=== PATIENT | female | born 1980 | race American Indian/Alaskan Native ===

== ENCOUNTER 2018-11-21 15:24 | Emergency (ER) | payer MEDICAID, OTHER ==
--- NOTE | 2018-11-21 16:23 | Emergency Department Report ---
Blank Doc - Documentation Documentation: This is a 38-year-old female that presents with right foot pain s/p fall. This initial assessment/diagnostic orders/clinical plan/treatment(s) is/are subject to change based on patient's health status, clinical progression and re- assessment by fellow clinical providers in the ED. Further treatment and workup at subsequent clinical providers discretion. Patient/guardians urged not to elope from the ED as their condition may be serious if not clinically assessed and managed. Initial orders include: 1- Patient sent to [facility] for further evaluation and treatment 2- xray
[2018-11-21 16:24] VITALS: BP 153/87
--- NOTE | 2018-11-21 16:57 | XRay Report ---
PROCEDURE: XR FOOT 3+V RT TECHNIQUE: foot radiographs, AP, lateral, and oblique views. HISTORY: RT foot pain COMPARISONS: None . FINDINGS: AP, lateral and oblique views of the right foot were acquired and demonstrate no fracture o r malalignment of the right foot. There is a plantar calcaneal spur 0.3 cm. IMPRESSION: No fracture is seen in the right foot This document is electronically signed by Channing Traylor MD., November 21 2018 04:55:44 PM ET
[2018-11-21] MEDS ORDERED: ULTRAM PO ONE (18:07)
--- NOTE | 2018-11-21 18:55 | Emergency Department Report ---
ED Lower Extremity HPI - General Chief Complaint: Extremity Injury, Lower Stated Complaint: RIGHT FOOT PAIN Time Seen by Provider: 11/21/18 16:22 Source: patient Mode of arrival: Ambulatory Limitations: No Limitations - History of Present Illness Initial Comments: This is a 38-year-old female that presents with right foot pain s/p fall. pain described as 6/10 aching no swelling no numbness no tingling no deformity pt is ambulatory with steady gait. MD Complaint: foot injury Onset/Timin -: days(s) Injury: Foot: Right Type of Injury: hyperextension Place: work Severity: moderate Severity scale (0 -10): 5 Improves With: rest Worsens With: weight bearing, movement, palpation Associated Symptoms: ambulatory - Related Data Previous Rx's Medication Instructions Recorded Last Taken Type Ibuprofen [Motrin] 600 mg PO Q8H PRN #30 tablet 03/30/14 Unknown Rx Loratadine/Pseudoephedrine 1 tab PO Q12H #20 tablet 03/30/14 Unknown Rx [Claritin-D 12HR] Vit-Fe Fumar-FA [ 1 tab PO QDAY #90 tablet 04/07/15 Unknown Rx Vitamin] Promethazine [Phenergan TAB] 25 mg PO Q6HR PRN #20 tab 04/07/15 Unknown Rx cephALEXin [Keflex] 500 mg PO Q6HR #28 capsule 04/07/15 Unknown Rx metroNIDAZOLE 0.75%(NF) [Metrogel 1 applicatio TP QHS #5 tube 04/07/15 Unknown Rx 0.75% TOPICAL] Cyclobenzaprine [Flexeril] 10 mg PO TID PRN #30 tablet 11/21/18 Unknown Rx Menthol/Camphor [[place] 1 applicatio TP QID PRN #1 tube 11/21/18 Unknown Rx Ointment] Naproxen [Naprosyn TAB] 500 mg PO BID PRN #30 tablet 11/21/18 Unknown Rx Allergies Allergy/AdvReac Type Severity Reaction Status Date / Time No Known Allergies Allergy Verified 11/21/18 15:27 ED Review of Systems ROS: Stated complaint: RIGHT FOOT PAIN Other details as noted in HPI Constitutional: denies: chills, fever Eyes: denies: eye pain, eye discharge, vision change ENT: denies: ear pain, throat pain Respiratory: denies: cough, shortness of breath, wheezing Cardiovascular: denies: chest pain, palpitations Endocrine: no symptoms reported Gastrointestinal: as per HPI Genitourinary: denies: urgency, dysuria, discharge Musculoskeletal: joint swelling Skin: denies: rash, lesions Neurological: denies: headache, weakness, paresthesias Psychiatric: denies: anxiety, depression Hematological/Lymphatic: denies: easy bleeding, easy bruising ED Past Medical Hx - Past Medical History Previous Medical History?: No Additional medical history: heart murmur - Surgical History Additional Surgical History: - Social History Smoking Status: Never Smoker Substance Use Type: None - Medications Home Medications: Home Medications Medication Instructions Recorded Confirmed Last Taken Type Ibuprofen [Motrin] 600 mg PO Q8H PRN #30 tablet 03/30/14 Unknown Rx Loratadine/Pseudoephedrine 1 tab PO Q12H #20 tablet 03/30/14 Unknown Rx [Claritin-D 12HR] Vit-Fe Fumar-FA [ 1 tab PO QDAY #90 tablet 04/07/15 Unknown Rx Vitamin] Promethazine [Phenergan TAB] 25 mg PO Q6HR PRN #20 tab 04/07/15 Unknown Rx cephALEXin [Keflex] 500 mg PO Q6HR #28 capsule 04/07/15 Unknown Rx metroNIDAZOLE 0.75%(NF) [Metrogel 1 applicatio TP QHS #5 tube 04/07/15 Unknown Rx 0.75% TOPICAL] Cyclobenzaprine [Flexeril] 10 mg PO TID PRN #30 tablet 11/21/18 Unknown Rx Menthol/Camphor [[place] 1 applicatio TP QID PRN #1 tube 11/21/18 Unknown Rx Ointment] Naproxen [Naprosyn TAB] 500 mg PO BID PRN #30 tablet 11/21/18 Unknown Rx ED Physical Exam - General Limitations: No Limitations General appearance: alert, in no apparent distress - Head Head exam: Present: atraumatic, normocephalic - Eye Eye exam: Present: normal appearance, PERRL, EOMI Pupils: Present: normal accommodation - ENT ENT exam: Present: mucous membranes moist - Neck Neck exam: Present: normal inspection, full ROM. Absent: lymphadenopathy - Respiratory Respiratory exam: Present: normal lung sounds bilaterally. Absent: respiratory distress, wheezes, stridor, chest wall tenderness - Cardiovascular Cardiovascular Exam: Present: regular rate, normal rhythm, normal heart sounds. Absent: systolic murmur, diastolic murmur, rubs, gallop - GI/Abdominal GI/Abdominal exam: Present: soft, normal bowel sounds. Absent: distended, tenderness, bruit, hernia - Rectal Rectal exam: Present: deferred - Extremities Exam Extremities exam: Present: normal inspection, full ROM, tenderness, normal capillary refill. Absent: pedal edema, joint swelling, other - Expanded Lower Extremity Exam Right Foot/Toe exam: Present: full ROM, tenderness. Absent: swelling, abrasion, laceration, ecchymosis, deformity, crepidus, dislocation, erythema, amputation, puncture wound, foreign body, calcaneal tenderness, tenderness at base of 5th metatarsal, nail avulsion, subungual hematoma Neuro vascular tendon exam: Absent: pulse deficit, motor deficit, sensory deficit, tendon deficit, abnormal 2-point discrimination, foot drop Gait: Positive: observed and normal - Back Exam Back exam: Present: normal inspection, full ROM. Absent: tenderness, CVA tenderness (R), CVA tenderness (L), muscle spasm, paraspinal tenderness, rash noted - Neurological Exam Neurological exam: Present: alert, oriented X3, CN II-XII intact, normal gait, reflexes normal. Absent: motor sensory deficit - Psychiatric Psychiatric exam: Present: normal affect, normal mood - Skin Skin exam: Present: warm, dry, intact, normal color. Absent: rash ED Course Vital Signs 11/21/18 16:22 Temperature 98.7 F Pulse Rate 66 Respiratory 16 Rate Blood Pressure 153/87 O2 Sat by Pulse 99 Oximetry ED Lower Extremity MDM - Radiology Data Radiology results: report reviewed, image reviewed This is a 38-year-old female that presents with right foot pain s/p fall and twist accident at work pt complains of 5/10 aching mild swelling no numbness no tingling - Medical Decision Making Patient fracture and soft tissue abnormality plan NSAIDs therapy following her PCP in 2-3 days , pain is improved, patient is ambulatory with with steady gait. Critical care attestation.: If time is entered above; I have spent that time in minutes in the direct care of this critically ill patient, excluding procedure time. ED Disposition Clinical Impression: Right foot sprain Qualifiers: Encounter type: initial encounter Qualified Code(s): S93.601A - Unspecified sprain of right foot, initial encounter Disposition: TO HOME OR SELFCARE Is pt being admited?: No Does the pt Need Aspirin: No Condition: Stable Instructions: Foot Sprain (ED), Ankle Exercises (GEN) Prescriptions: Cyclobenzaprine [Flexeril] 10 mg PO TID PRN #30 tablet PRN Reason: Muscle Spasm Naproxen [Naprosyn TAB] 500 mg PO BID PRN #30 tablet PRN Reason: pain Menthol/Camphor [[place] Ointment] 1 applicatio TP QID PRN #1 tube PRN Reason: pain [facility]Primary [facility] Provider[facility] - 3-5 Days Forms: Work/School Release Form(ED) Time of Disposition: 19:11
== END 2018-11-21 19:19 | disposition home or self-care (01) ==
LOC: ED 15:24
DX: S93.601A Unspecified sprain of right foot, initial encounter (principal); X50.0XXA Overexertion from strenuous movement or load, initial encounter; Y93.89 Activity, other specified; Y92.69 Other specified industrial and construction area as the place of occurrence of the external cause; Y99.8 Other external cause status
CPT/HCPCS: 99283

== ENCOUNTER 2019-08-28 17:03 | Emergency (ER) | payer SELFPAY ==
[2019-08-28 18:10] VITALS: BP 162/97
--- NOTE | 2019-08-28 18:10 | Event Note ---
ED Screening Note Date of service: 08/28/19 Time: 18:09 ED Screening Note: 39 y o female presents with left eye redness and pain with some swelling x 2 days This initial assessment/diagnostic orders/clinical plan/treatment(s) is/are subject to change based on patients health status, clinical progression and re- assessment by fellow clinical providers in the ED. Further treatment and workup at subsequent clinical providers discretion. Patient/guardian urged not to elope from the ED as their condition may be serious if not clinically assessed and managed. Initial orders include: E[facility] acc eval
[2019-08-28] MEDS ORDERED: IBUPROFEN 800 MG TAB PO ONE (21:38)
--- NOTE | 2019-08-28 21:41 | Emergency Department Report ---
[facility] Chief Complaint: Eye Problems Stated Complaint: LT EYE PAIN Time Seen by Provider: 08/28/19 21:36 Side: Left Severity: moderate Symptoms: Yes Eye Itching, Yes Eye Redness, Yes Eye Pain, Yes Mucous Drainage, Yes Purulent Drainage, Yes H/O Allergic Rhinitis, No Blurred Vision, No Preceding URI, No Contact Lens Use, No Trauma, No Fever, No Headache Other History: pt presents for pink eye x 2 days , child at home with same, there is no loss of vision , no fever or chills , no swelling drainage is yellow clear. ED Review of Systems ROS: Stated complaint: LT EYE PAIN Other details as noted in HPI Constitutional: denies: chills, fever Eyes: eye discharge. denies: eye pain, vision change ENT: denies: ear pain, throat pain Respiratory: denies: cough, shortness of breath, wheezing Cardiovascular: denies: chest pain, palpitations Endocrine: no symptoms reported Gastrointestinal: denies: abdominal pain, nausea, diarrhea Genitourinary: denies: urgency, dysuria, discharge Musculoskeletal: denies: back pain, joint swelling, arthralgia Skin: denies: rash, lesions Neurological: denies: headache, weakness, paresthesias Psychiatric: denies: anxiety, depression Hematological/Lymphatic: as per HPI ED Past Medical Hx - Past Medical History Previous Medical History?: Yes Additional medical history: heart murmur - Surgical History Past Surgical History?: Yes Additional Surgical History: - Social History Smoking Status: Never Smoker Substance Use Type: None - Medications Home Medications: Home Medications Medication Instructions Recorded Confirmed Last Taken Type Ibuprofen [Motrin] 600 mg PO Q8H PRN #30 tablet 03/30/14 Unknown Rx Loratadine/Pseudoephedrine 1 tab PO Q12H #20 tablet 03/30/14 Unknown Rx [Claritin-D 12HR] Vit-Fe Fumar-FA [ 1 tab PO QDAY #90 tablet 04/07/15 Unknown Rx Vitamin] Promethazine [Phenergan TAB] 25 mg PO Q6HR PRN #20 tab 04/07/15 Unknown Rx cephALEXin [Keflex] 500 mg PO Q6HR #28 capsule 04/07/15 Unknown Rx metroNIDAZOLE 0.75%(NF) [Metrogel 1 applicatio TP QHS #5 tube 04/07/15 Unknown Rx 0.75% TOPICAL] Cyclobenzaprine [Flexeril] 10 mg PO TID PRN #30 tablet 11/21/18 Unknown Rx Menthol/Camphor [[place] 1 applicatio TP QID PRN #1 tube 11/21/18 Unknown Rx Ointment] Naproxen [Naprosyn TAB] 500 mg PO BID PRN #30 tablet 11/21/18 Unknown Rx Ibuprofen [Motrin 800 MG tab] 800 mg PO Q8HR PRN #30 tablet 08/28/19 Unknown Rx Ketotifen Fumarate [Zaditor] 2 drops OP BID #5 ml 08/28/19 Unknown Rx Polymyxin B Sulf/Trimethoprim 2 drops OP Q3H 7 Days #10 ml 08/28/19 Unknown Rx [Polytrim Eye Drops] [facility] Exam - Exam General: Vital signs noted. No distress. Alert and acting appropriately. Eye Exam: Left Injection, Left Photophobia, Both EOMI, Both Mucous Discharge, Both Purulent Discharge, Neither Chemosis, Neither Abnormal Pupil, Neither Eye Foreign Body, Neither Lid Foreign Body HEENT: No Nasal Congestion, No Pharyngeal Erythema Remainder of HEENT: Normal Lungs: Yes Clear Lung Sounds, Yes Good Air Exchange, No Wheezes, No Stridor, No Cough, No Nasal Flaring, No Retractions, No Use of Accessory Muscles ED Course Vital Signs 08/28/19 18:08 Temperature 98 F Pulse Rate 66 Respiratory 20 Rate Blood Pressure 162/97 O2 Sat by Pulse 99 Oximetry ED Medical Decision Making - Medical Decision Making This is straight for conjunctivitis no visual loss there is been no trauma, patient has daughter at home hans. Plan Polytrim eyedrops, Zaditor, ibuprofen as needed for aches and pains, follow-up with ophthalmology in [place]. Patient verbalized agreement and understanding with discharge plan. Patient DC'd home in stable condition at this time. Critical care attestation.: If time is entered above; I have spent that time in minutes in the direct care of this critically ill patient, excluding procedure time. ED Disposition Clinical Impression: Conjunctivitis Qualifiers: Conjunctivitis type: acute Acute conjunctivitis type: bacterial Laterality: left Qualified Code(s): H10.32 - Unspecified acute conjunctivitis, left eye Disposition: DC-01 TO HOME OR SELFCARE Is pt being admited?: No Does the pt Need Aspirin: No Condition: Stable Instructions: Conjunctivitis (ED) Prescriptions: Ibuprofen [Motrin 800 MG tab] 800 mg PO Q8HR PRN #30 tablet PRN Reason: pain Polymyxin B Sulf/Trimethoprim [Polytrim Eye Drops] 2 drops OP Q3H 7 Days #10 ml Ketotifen Fumarate [Zaditor] 2 drops OP BID #5 ml Referrals: TRAN GUTIERREZ MD [Staff Physician] - 3-5 Days Forms: Work/School Release Form(ED) Time of Disposition: 21:43
[2019-08-28] MEDS ORDERED: BALANCED SALT IRRIG (BSS) OPHTH SOLN 15 ML ONE (21:56)
[2019-08-28] MEDS ORDERED: TETRACAINE 0.5% OPHTH SOLN 4ML ONE (21:57)
[2019-08-28] MEDS ORDERED: FLUORESCEIN 1 MG STRIP OP ONE (21:57)
[2019-08-28] MEDS: BALANCED SALT IRRIG 1 DROPS, TETRACAINE 0.5% 1 DROPS, FLUORESCEIN 1 MG TP ONE ×2 (21:59→22:08)
== END 2019-08-28 22:09 | disposition home or self-care (01) ==
LOC: ED 17:03
DX: H10.9 Unspecified conjunctivitis (principal); Z79.899 Other long term (current) drug therapy; Z98.890 Other specified postprocedural states
CPT/HCPCS: 99282

== ENCOUNTER 2020-02-25 17:38 | Emergency (ER) | payer SELFPAY ==
--- NOTE | 2020-02-25 18:09 | XRay Report ---
CHEST 2 VIEWS INDICATION / CLINICAL INFORMATION: Cough, shortness of breath and sneezing. Headache and nausea. COMPARISON: None available. FINDINGS: SUPPORT DEVICES: None. HEART / MEDIASTINUM: The heart size and pulmonary vasculature are normal. LUNGS / PLEURA: No significant pulmonary or pleural abnormality. No pneumothorax. ADDITIONAL FINDINGS: There is slight thoracolumbar scoliosis. IMPRESSION: No acute findings. Signer Name: Wm Diaz MD Signed: 02/25/2020 6:04 PM Workstation Name: [id number]
--- NOTE | 2020-02-25 21:22 | Emergency Department Report ---
- General Chief Complaint: Upper Respiratory Infection Stated Complaint: HEADACHE/N/RUNNY NOSE/WEAKNESS Time Seen by Provider: 02/25/20 20:19 Source: patient Mode of arrival: Ambulatory Limitations: No Limitations - History of Present Illness Initial Comments: 39-year-old F [place] female with no significant past medical history presents emergency department complaining of a less than 24-hour period of cough congestion coryza nasal pressure and sinus discharge clear of an unknown etiology she went to make sure she had the flu before returning to work. She reports no diarrhea no hemoptysis no hematemesis no hematochezia. - Related Data Previous Rx's Medication Instructions Recorded Last Taken Type Ibuprofen [Motrin] 600 mg PO Q8H PRN #30 tablet 03/30/14 Unknown Rx Loratadine/Pseudoephedrine 1 tab PO Q12H #20 tablet 03/30/14 Unknown Rx [Claritin-D 12HR] Vit-Fe Fumar-FA [ 1 tab PO QDAY #90 tablet 04/07/15 Unknown Rx Vitamin] Promethazine [Phenergan TAB] 25 mg PO Q6HR PRN #20 tab 04/07/15 Unknown Rx cephALEXin [Keflex] 500 mg PO Q6HR #28 capsule 04/07/15 Unknown Rx metroNIDAZOLE 0.75%(NF) [Metrogel 1 applicatio TP QHS #5 tube 04/07/15 Unknown Rx 0.75% TOPICAL] Cyclobenzaprine [Flexeril] 10 mg PO TID PRN #30 tablet 11/21/18 Unknown Rx Menthol/Camphor [Clare [place] 1 applicatio TP QID PRN #1 tube 11/21/18 Unknown Rx Ointment] Naproxen [Naprosyn TAB] 500 mg PO BID PRN #30 tablet 11/21/18 Unknown Rx Ibuprofen [Motrin 800 MG tab] 800 mg PO Q8HR PRN #30 tablet 08/28/19 Unknown Rx Ketotifen Fumarate [Zaditor] 2 drops OP BID #5 ml 08/28/19 Unknown Rx Polymyxin B Sulf/Trimethoprim 2 drops OP Q3H 7 Days #10 ml 08/28/19 Unknown Rx [Polytrim Eye Drops] guaiFENesin/CODEINE [Robitussin AC] 5 ml PO TID #120 oral.liqd 09/15/20 Unknown Rx Allergies Allergy/AdvReac Type Severity Reaction Status Date / Time No Known Allergies Allergy Verified 11/21/18 15:27 ED Review of Systems ROS: Stated complaint: HEADACHE/N/RUNNY NOSE/WEAKNESS Other details as noted in HPI Comment: All other systems reviewed and negative ED Past Medical Hx - Past Medical History Previous Medical History?: Yes Additional medical history: heart murmur - Surgical History Additional Surgical History: - Social History Smoking Status: Never Smoker Substance Use Type: None - Medications Home Medications: Home Medications Medication Instructions Recorded Confirmed Last Taken Type Ibuprofen [Motrin] 600 mg PO Q8H PRN #30 tablet 03/30/14 Unknown Rx Loratadine/Pseudoephedrine 1 tab PO Q12H #20 tablet 03/30/14 Unknown Rx [Claritin-D 12HR] Vit-Fe Fumar-FA [ 1 tab PO QDAY #90 tablet 04/07/15 Unknown Rx Vitamin] Promethazine [Phenergan TAB] 25 mg PO Q6HR PRN #20 tab 04/07/15 Unknown Rx cephALEXin [Keflex] 500 mg PO Q6HR #28 capsule 04/07/15 Unknown Rx metroNIDAZOLE 0.75%(NF) [Metrogel 1 applicatio TP QHS #5 tube 04/07/15 Unknown Rx 0.75% TOPICAL] Cyclobenzaprine [Flexeril] 10 mg PO TID PRN #30 tablet 11/21/18 Unknown Rx Menthol/Camphor [Clare [place] 1 applicatio TP QID PRN #1 tube 11/21/18 Unknown Rx Ointment] Naproxen [Naprosyn TAB] 500 mg PO BID PRN #30 tablet 11/21/18 Unknown Rx Ibuprofen [Motrin 800 MG tab] 800 mg PO Q8HR PRN #30 tablet 08/28/19 Unknown Rx Ketotifen Fumarate [Zaditor] 2 drops OP BID #5 ml 08/28/19 Unknown Rx Polymyxin B Sulf/Trimethoprim 2 drops OP Q3H 7 Days #10 ml 08/28/19 Unknown Rx [Polytrim Eye Drops] guaiFENesin/CODEINE [Robitussin AC] 5 ml PO TID #120 oral.liqd 02/25/20 Unknown Rx ED Physical Exam - General Limitations: No Limitations General appearance: alert, in no apparent distress - Head Head exam: Present: atraumatic, normocephalic - Eye Eye exam: Present: normal appearance, PERRL, EOMI Pupils: Present: normal accommodation - ENT ENT exam: Present: mucous membranes moist - Neck Neck exam: Present: normal inspection - Respiratory Respiratory exam: Present: normal lung sounds bilaterally, rhonchi. Absent: respiratory distress, chest wall tenderness, accessory muscle use - Cardiovascular Cardiovascular Exam: Present: regular rate, normal rhythm. Absent: systolic murmur, diastolic murmur, rubs, gallop - GI/Abdominal GI/Abdominal exam: Present: soft, normal bowel sounds - Extremities Exam Extremities exam: Present: normal inspection - Back Exam Back exam: Present: normal inspection - Neurological Exam Neurological exam: Present: alert, oriented X3 - Psychiatric Psychiatric exam: Present: normal affect, normal mood - Skin Skin exam: Present: warm, dry, intact, normal color. Absent: rash ED Course Vital Signs 02/25/20 17:41 Temperature 98.1 F Pulse Rate 82 Respiratory 16 Rate Blood Pressure 194/102 O2 Sat by Pulse 98 Oximetry ED Medical Decision Making - Radiology Data [facility] [address] [place] [address] XRay Report Signed Patient: JOHNATHON LIMA MR#: [id number] 60 : 1980 Acct:[id number] Age/Sex: 39 / F ADM Date: 02/25/20 Loc: ED Attending Dr: Ordering Physician: LONNIE MAHONEY MD Date of Service: 02/25/20 Procedure(s): XR chest routine 2V Accession Number(s): [id number] cc: LONNIE MAHONEY MD Fluoro Time In Minutes: CHEST 2 VIEWS INDICATION / CLINICAL INFORMATION: Cough, shortness of breath and sneezing. Headache and nausea. COMPARISON: None available. FINDINGS: SUPPORT DEVICES: None. HEART / MEDIASTINUM: The heart size and pulmonary vasculature are normal. LUNGS / PLEURA: No significant pulmonary or pleural abnormality. No pneumothorax. ADDITIONAL FINDINGS: There is slight thoracolumbar scoliosis. IMPRESSION: No acute findings. Signer Name: Wm Diaz MD Signed: 02/25/2020 6:04 PM Workstation Name: [id number] Transcribed By: RT Dictated By: Wm Diaz MD Electronically Authenticated By: Wm Diaz MD Signed Date/Time: 09/1803 DD/ 02 TD/TT: - Medical Decision Making This 39-year-old -[place] female patient presents with symptoms suspicious for likely viral upper respiratory tract infection. Differential includes bacterial pneumonia, sinusitis, allergic rhinitis, hyperreactive airway disease. Do not suspect underlying Cardiopulmonary process. I considered but think unlikely dangerous cause of this patient symptoms to include acute coronary syndrome, CHF or COPD exacerbations, pneumonia, pneumothorax. Patient is nontoxic appearing and not in need of emergent medical intervention.this patient presents with acute cough, most consistent with URI/bronchitis. Presentation not consistent with acute bacterial pneumonia, influenza, asthma, transient airway hyperresponsiveness. Presentation not consistent with chronic causes of cough (including GERD, asthma, postnasal discharge, medication side effect, CHF, lung cancer or mass). Plan: Reassurance, reassessment, [id number] medications, discharge with PCP follow-up Critical care attestation.: If time is entered above; I have spent that time in minutes in the direct care of this critically ill patient, excluding procedure time. ED Disposition Clinical Impression: URI (upper respiratory infection), Cough Disposition: DC-01 TO HOME OR SELFCARE Is pt being admited?: No Does the pt Need Aspirin: No Condition: Stable Instructions: Cold Symptoms (ED), Acute Cough (ED) Prescriptions: guaiFENesin/CODEINE [Robitussin AC] 5 ml PO TID #120 oral.liqd Referrals: PRIMARY CARE, [Primary Care Provider] - 3-5 Days [facility] [Provider Group] - 3-5 Days
[2020-02-25 21:45] VITALS: BP 151/100
== END 2020-02-25 21:45 | disposition home or self-care (01) ==
LOC: ED 17:38
DX: J06.9 Acute upper respiratory infection, unspecified (principal); R05 Cough; Z79.899 Other long term (current) drug therapy; Z98.890 Other specified postprocedural states
CPT/HCPCS: 71046; 99283